=== PATIENT | male | born 1970 ===

== ENCOUNTER 2019-03-24 07:31 | Day surgery (SDC) | payer OTHER ==
[~2019-03-24 07:31] MED LIST: Buffered Lidocaine 1% SYRIN* 1 ML/SYRINGE INTRADERM ONE; Famotidine IV* 10 MG/ML 2 ML (20 mg) IV ONE; Famotidine IV* 10 MG/ML 2 ML (20 mg) ONE; Lactated Ringers 1000 ML Bag* 1,000 ML IV SCH
[2019-03-24] MEDS ORDERED: oxyCODONE TAB* 5 MG TAB PO PRN (07:47)
[2019-03-24] MEDS ORDERED: DiMENhydriNATE IV* 50 MG/ML VIAL IV PUSH PRN (07:47)
[2019-03-24] MEDS ORDERED: Acetaminophen TAB* 325 MG PO PRN (07:47)
[2019-03-24] MEDS ORDERED: Naloxone* 0.4 MG/ML 1 ML VIAL IV PRN (07:47)
[2019-03-24] MEDS ORDERED: Midazolam* 1 MG/ML 5 ML VIAL (5 MG) ONE (08:03)
[2019-03-24] MEDS ORDERED: ceFAZolin 2 GM PREMIX in ORs 2 GM/50 ML BAG ONE (08:06)
[2019-03-24] MEDS ORDERED: fentaNYL* 50 MCG/ML 2 ML VIAL (100 MCG VIAL) ONE (08:20)
[2019-03-24] MEDS ORDERED: Bupivacaine 0.25% SDV* 30 ML ONE (08:44)
[2019-03-24] MEDS ORDERED: Propofol* 10 MG/ML 20 ML BTL ONE (09:25)
[2019-03-24] MEDS ORDERED: Ondansetron INJ* 2 MG/ML VIAL ONE (09:35)
[2019-03-24] MEDS ORDERED: Ketorolac INJ* 30 MG/ML 1 ML VIAL ONE (09:35)
[2019-03-24] MEDS ORDERED: Lidocaine 2% PF * 5 ML VIAL ONE (09:35)
[2019-03-24 10:34] VITALS: BP 114/80
--- NOTE | 2019-03-24 15:55 | OP ---
OPERATIVE REPORT: DATE OF OPERATION: 03/24/19 DATE OF : 74 SURGEON: Albino Roger MD VAT OPERATOR: GAGE Marinelli ANESTHESIOLOGIST: Dr. Alvarado. ANESTHESIA: Local MAC. PRE-OP DIAGNOSIS: Right index and small trigger fingers. POST-OP DIAGNOSIS: Right index and small trigger fingers. OPERATIVE PROCEDURE: 1. Right index trigger finger release. 2. Right small trigger finger release. INDICATIONS: Mr. Santos has the aforementioned conditions. They are quite severe. They have recurred despite injections. We talked about treatment options. He wishes to proceed. ESTIMATED BLOOD LOSS: 2 mL. COMPLICATIONS: None. FINDINGS: See above and below. DESCRIPTION OF PROCEDURE: Mr. Santos was seen in the preoperative holding area. The correct site, danita e, and procedures were identified. We came back to the operating room where the arm was prepped and draped in the usual fashion and a time-out was performed. The arm was exsanguinated with the Esmarch and the tourniquet was inflated. I had numbed up the area with 0.25% plain Marcaine. I then made longitudinal incisions over the right index finger A1 ronen and right small finger A1 ronen. Full- thickness flaps were raised off the tendon sheaths. I then began on the index finger and Ragnell retractors were placed. I then incised the A1 ronen along th e radial third longitudinally. The release was completed distally and proximally with the tenotomy s cissors releasing the fascia proximal. I cannot induce any triggering. I then came to the small finger. I placed the Ragnell retractors. I again released the A1 ronen lo ngitudinally along the radial third. The release was completed distally and proximally. There was a little bit of tenosynovitis on each finger that I cleaned up. At this point, everything was looking good. There was no triggering. The wounds were irrigated out. Skin was closed with 4-0 nylon sutu re. Soft dressings were applied and he was then taken to the recovery room in stable condition. [id number]/[facility] #: [id number]
== END 2019-03-24 10:36 | disposition home or self-care (01) ==
LOC: OREAST 07:31
PROVIDERS: ATTEND Orthopaedic Surgery Hand Surgery
DX: M65.321 Trigger finger, right index finger (principal); M65.351 Trigger finger, right little finger; G47.33 Obstructive sleep apnea (adult) (pediatric); Z87.891 Personal history of nicotine dependence; R73.03 Prediabetes; I10 Essential (primary) hypertension
CPT/HCPCS: J0690; J1885; J2250; J2405; J2704; J3010; J3490